=== PATIENT | male | born 1990 | race Caucasian/White ===

== ENCOUNTER 2023-08-27 15:03 | Emergency (ER) | payer SELFPAY ==
[2023-08-27 15:51] LABS: BASOPHILS ABSOLUTE AUTO 0.1 K/mm3 (0.0-0.2); BASOPHILS PERCENT AUTO 0.5 % (0.0-1.0); EOSINOPHILS ABSOLUTE AUTO 0.4 K/mm3 (0.0-0.4); EOSINOPHILS PERCENT AUTO 2.9 % (0.0-6.0); HEMATOCRIT 42.6 % (42.0-52.0); HEMOGLOBIN 14.5 gm/dl (14.0-18.0); IMMATURE GRAN ABSOLUTE AUTO 0.04 K/mm3 (0.00-0.05); IMMATURE GRAN PERCENT AUTO 0.3 % (0.0-0.4); LYMPHOCYTES ABSOLUTE AUTO 1.9 K/mm3 (1.0-4.8); MEAN PLATELET VOLUME 8.8 fl (9.4-12.4); MONOCYTES ABSOLUTE AUTO 0.7 K/mm3 (0.0-0.8); MONOCYTES PERCENT AUTO 5.8 % (0.0-8.0); NEUTROPHILS ABSOLUTE AUTO 9.4 K/mm3 (1.8-7.7); NEUTROPHILS PERCENT AUTO 75.5 % (41.0-71.0); PLATELET COUNT,PLT 285 K/mm3 (150-400); RED BLOOD CELL COUNT 4.68 M/mm3 (4.52-5.90); WHITE BLOOD CELL COUNT,WBC 12.39 K/mm3 (3.9-11.3)
[2023-08-27] MEDS ORDERED: Sodium Chloride 0.9% 1,000 ML IV SCH (16:15)
[2023-08-27 16:33] LABS: A/G RATIO 1.2 (1-2); ANION GAP 14.3 (5-15); BILIRUBIN TOTAL 0.4 mg/dL (0.2-1.0); BUN/CREATININE RATIO 12.5 (14-18); CALCIUM 9.2 mg/dL (8.5-10.1); CREATININE 1.2 mg/dL (0.7-1.3); EST CRCL DRUG DOSING (CG) 86.29 mL/min; POTASSIUM,K 4.3 mEq/L (3.5-5.1); PROTEIN TOTAL,TP 7.3 g/dl (6.4-8.2); TSH 0.98 uIU/mL (0.358-3.74)
[2023-08-27 17:26] LABS: BARBITURATE SCREEN,URINE NEGATIVE (CUTOFF=200); BENZODIAZEPINES SCREEN,URINE NEGATIVE (CUTOFF=150); BUPRENORPHINE SCREEN,URINE NEGATIVE (CUTOFF=10); METHADONE SCREEN, URINE NEGATIVE (CUT0FF=200); METHAMPHETAMINES SCREEN, URINE PRESUMPTIVE POSITIVE (CUTOFF=500); OXYCODONE SCREEN,URINE NEGATIVE (CUT0FF=100); THC SCREEN,URINE 20 NG/ML NEGATIVE (CUTOFF=50)
[2023-08-27 17:32] LABS: AMPHETAMINES SCREEN, URINE PRESUMPTIVE POSITIVE (CUTOFF=500)
== END 2023-08-27 18:38 ==
LOC: JD.ED 15:03
DX: F15.10 Other stimulant abuse, uncomplicated (principal); F17.210 Nicotine dependence, cigarettes, uncomplicated; Z88.8 Allergy status to other drugs, medicaments and biological substances
CPT/HCPCS: 36415; 70450; 80053; 80143; 80179; 80306; 80307; 84443; 85025; 93005; 99284; J7030; 93010